=== PATIENT | female | born 1985 | race Caucasian/White ===

== ENCOUNTER 2022-12-02 06:36 | Outpatient (CLI) | payer MEDICARE, MEDICAID, SELFPAY ==
--- NOTE | ~2022-12-02 | MR_ITS ---
MRI of the right knee Clinical history: Internal range month Technique: Coronal proton density and proton density-weighted images, sagittal proton-density and T2 fat-sat images, and axial proton-density fat-saturated images were acquired. Findings: There is mild increased signal at the very proximal ACL, without full-thickness tear. Poste rior cruciate ligament is intact. There is complete rupture of the MCL at its proximal to midportion, just superior to the joint line. Lateral collateral ligament complex is intact. Popliteus tendon is intact. Medial and lateral menisci are intact, without evidence of tear. There is grade 4 chondral lesion at the patellar apex measuring approximately 8 mm in length. Remaini ng articular cartilage in the knee is well preserved. There is extensive marrow edema at the lateral femoral condyle region. There is more focal marrow edema at the anteromedial tibial plateau. There is subchondral reactive marrow edema at the patellar apex region. Quadriceps tendon and patellar tendon are intact. Small joint effusion present. No Khan's cyst. Impression: Complete rupture of the MCL, as detailed above. Probable associated tearing of the insertion of the M PFL in this region. Extensive bone contusion at the lateral femoral condyle. Focal bone contusion at the anteromedial tib ial plateau. Possible focal low-grade sprain of the proximal ACL. Grade 4 chondral lesion at the patellar apex, as detailed above. Reviewed, dictated and finalized at location . Impression: Complete rupture of the MCL, as detailed above. Probable associated tearing of the insertion of the MPFL in this region. Extensive bone contusion at the lateral femoral condyle. Focal bone contusion a t the anteromedial tibial plateau. Possible focal low-grade sprain of the proximal ACL. Grade 4 chondral lesion at the patellar apex, as detailed above.
== END 2022-12-02 06:37 | disposition home or self-care (01) ==
PROVIDERS: Visit Provider Physician Assistant
DX: M23.91 Unspecified internal derangement of right knee (principal); S83.411A Sprain of medial collateral ligament of right knee, initial encounter; X58.XXXA Exposure to other specified factors, initial encounter
CPT/HCPCS: 73721